=== PATIENT | female | born 1950 | race Caucasian/White ===

== ENCOUNTER 2017-11-18 03:32 | Inpatient (IN) | payer OTHER ==
[~2017-11-18] VITALS: Ht 170.2 cm; Wt 95.7 kg
[~2017-11-18 03:32] MED LIST: COMBIGAN EYE DRO5 ML OPH; CRANBERRY200 MG PO; DILTIAZEM 24HR360 MG PO; LISINOPRIL40 M1 PO; LUMIGAN2.5 ML OPH
[2017-11-18] MEDS ORDERED: PEPCID20 M1 PO (09:13)
[2017-11-18] MEDS ORDERED: COLACE100 M1 PO (09:13)
[2017-11-18] MEDS ORDERED: DILAUDID2 M1 PO ×2 (09:13→13:18)
[2017-11-18] MEDS ORDERED: MIRALAX17 G1 PO (09:13)
[2017-11-18] MEDS ORDERED: MS CONTIN15 M3 PO ×2 (09:13→13:18)
[2017-11-18] MEDS ORDERED: ASPIRIN EC325 M2 PO (09:13)
--- NOTE | 2017-11-18 09:53 | Patient Discharge Instructions ---
Discharge Instructions General Discharge Information You were seen/treated for: DJD You had these procedures: RIGHT TOTAL HIP REPLACEMENT Watch for these problems: FEVER OVER 101 REDNESS AROUND OR DRAINAGE FROM WOUND No bath, but you may shower: Yes Other wound care: CLEAN DRY DRESSING CHANGE DAILY Diet Continue normal diet: Yes Activity Activity Self Limited: Yes Activity Limited to: Weight bear as tolerated Acute Coronary Syndrome Inclusion Criteria At DC or during hospital stay patient has or had the following: ACS DIAGNOSIS No Discharge Core Measures Meds if any: Prescribed or Continued at Discharge Meds if any: NOT Prescribed or Continued at Discharge Congestive Heart Failure Inclusion Criteria At DC or during hospital stay patient has or had the following: CHF DIAGNOSIS No Discharge Core Measures Meds if any: Prescribed or Continued at Discharge Meds if any: NOT Prescribed or Continued at Discharge Cerebrovascular accident Inclusion Criteria At DC or during hospital stay patient has or had the following: CVA/TIA Diagnosis No Discharge Core Measures Meds if any: Prescribed or Continued at Discharge Meds if any: NOT Prescribed or Continued at Discharge Venous thromboembolism Inclusion Criteria VTE Diagnosis No VTE Type NONE VTE Confirmed by (Test) NONE Discharge Core Measures - Per Current guidelines, there needs to be overlap - treatment for the first 5 days of Warfarin therapy. - If discharged on Warfarin prior to 5 days of - overlap therapy, the patient will need to be - assessed for post discharge needs including - *Post discharge parental anticoagulation - *Warfarin and/or parental anticoagulation education - *Follow up date to check INR post discharge At least 5 days overlap therapy as Inpatient No Meds if any: Prescribed or Continued at Discharge Note: Overlap Therapy is Warfarin and Anticoagulant Meds if any: NOT Prescribed or Continued at Discharge
--- NOTE | 2017-11-18 09:55 | Admission Core Measures ---
Acute Coronary Syndrome (CM) ACS Core Measures Acute Coronary Syndrome Diagnosis No Congestive Heart Failure (NEW) CHF Core Measures Congestive Heart Failure Diagnosis No Cerebrovascular Accident (NEW) CVA Core Measures CVA/TIA Diagnosis No Venous Thromboembolism VTE Core Mariana (View Protocol) VTE Risk Factors Surgery No Mechanical VTE Prophylaxis d/t N/A MechProphylax Ordered No VTE Pharm Prophylaxis d/t NA PharmProphylax ordered Problem List As ranked by this Provider includes Assessment & Plan 1. Status post total replacement of right hip HOME MEDS Home Med List Aspirin (Ecotrin*) 325 MG TABLET.DR 1 TAB PO BID ANTICOAGULATION Bimatoprost (Lumigan) 0.01 % DROPS 1 GTT OPH QPM EYE (Reported) Cranberry Extract (Cranberry) 200 MG CAPSULE 1 TAB PO DAILY Supplement ( Reported) Diltiazem HCl (Diltiazem 24HR ER) 360 MG CAP.ER.24H 1 CAP PO DAILY AFIB ( Reported) Docusate Sodium (Colace) 100 MG CAPSULE 1 CAP PO BID STOOL SOFTENER Famotidine (Pepcid) 20 MG TABLET 1 TAB PO DAILY GI PROPHYLAXIS Lisinopril 40 MG TABLET 1 TAB PO DAILY HTN (Reported) Polyethylene Glycol 3350 (Miralax) 17 GRAM POWD.PACK 1 PAC PO DAILY CONSTIPATION
--- NOTE | 2017-11-18 10:00 | Surg Short-stay <48hrs Dis Sum ---
Visit Information Visit Dates Admission Date: 11/18/17 Discharge Date: 11/18/2017 Surgical Short Stay DC Summary Admission Diagnosis: OA Final Diagnosis: SP R THR Procedure(s): R THR, SEE OP REPORT Summary/Significant Findings: PT UNDERWENT RIGHT THR ON 11/18/[address] DAY[address] PT WAS ABLE TO VOID, AMBULATE WITH PT AND HER PAIN WAS MANAGED ORAL MEDICATION. SHE WAS DEEMED STABLE TO BE DISCHARGED TO HOME WITH SERVICES. Condition at Discharge: STABLE Discharge Disposition: home health services Discharge instructions provided to patient/family: Yes Post discharge follow-up plan: APPOINTMENT SCHEDULED WITH DR DAY Copies to: Aravind Day MD
--- NOTE | 2017-11-18 10:11 | RADIOLOGY REPORT ---
EXAMINATION: XR HIP, RIGHT CLINICAL INFORMATION: Postop right hip arthroplasty COMPARISON: None TECHNIQUE: Two views of the right hip. FINDINGS: The right hip total arthroplasty components are in the usual position and alignment without evidence of loosening or fracture. Soft tissue gas overlies the operative site. IMPRESSION: Standard postoperative appearance of the right total hip arthroplasty.
[2017-11-18 10:40] VITALS: BP 142/68
--- NOTE | 2017-11-18 12:36 | PN- Orthopedic ---
Subjective Subjective: POC feeling nauseous, some improvement after meds. denies pain. no oob yet- awaiting pt eval. due to vid postop. awaiting pt eval "still slightly numb" Objective Vital Signs and I&Os Vital Signs Date Time Temp Pulse Resp B/P B/P Pulse O2 O2 Flow FiO2 Mean Ox Delivery Rate 11/18 1040 97.9 52 18 142/68 93 Room Air Intake & Output 11/18 1600 11/18 0800 11/18 0000 11/17 1600 11/17 0800 11/17 0000 Intake Total Output Total Balance Patient 211 lb Weight Weight Reported by Patient Measurement Method Physical Exam: gen- nad card- rrr pulm- no audible wheeze abd- soft nt ext- right hip dressing cdi, ttp at incision, palp dp, calves soft nt bl, alps on, gross sensation intact, +dorsi/plantar flexion though somewhat limited Assessment/Plan Assessment/Plan A- 67F POD0 sp R DOROTHY, PMHx htn with postop nausea, due to void postop, awaiting pt eval, otherwise stable. P- - asa bid, alps - pt, wbat - due to void postop - hl once nausea improves and voids - home meds - dc planning - will dw attending Core Measures Venous Thromboembolism VTE Risk Factors Surgery No Mechanical VTE Prophylaxis d/t N/A MechProphylax Ordered No VTE Pharm Prophylaxis d/t NA PharmProphylax ordered
--- NOTE | 2017-11-18 15:39 | Operative Report ---
Operative/Inv Procedure Report Surgery Date: 11/18/17 Name of Procedure: Right total hip replacement Pre-Operative Diagnosis: Primary right hip DJD Post-Operative Diagnosis: Same Estimated Blood Loss: 250 Surgeon/Hand Plug Shaper: Laura CHACON,Aravind Prince Anesthesia: block Operative/Procedure Note Note: Description of Procedure: The patient was taken to the operating room and positively identified. After induction of spinal anesthesia and administration of appropriate pre-operative antibiotics, the patient was positioned supine on the operating room table and all bony prominences were well padded. After performing a surgical timeout, the right lower extremity was prepped and draped in the usual sterile fashion. A direct anterior approach was made to the right hip. The incision was carried sharply through superficial soft tissues to the level of the fascia. Meticulous hemostasis was maintained with Bovie electocautery. The fascia over the tensor fascia sandie muscle was opened sharply and the interval between the TFL and the sartorius was entered bluntly taking care to stay lateral to the lateral femoral cutaneous nerve. Retractors were placed around the femoral neck and the pericapsular fat was identified. The ascending branches of the lateral femoral circumflex vessels were identified and carefully coagulated. The pericapsular fat and anterior capsule were then resected. A napkin ring osteotomy was performed and the femoral head was removed without difficulty. Attention was then turned to the acetabulum. After appropriate placement of retractors, the acetabulum was exposed. Soft tissue was cleaned from the acetabular margin and notch. Overhanging osteophytes were removed and the teardrop was exposed. The acetabulum was then sequentially reamed to accept a 56 mm Kayode Tritanium hemispherical solid shell. This was impacted into place in the appropriate position and fitted with a 36 mm Trident X3 zero degree polyethylene insert. Attention was then turned to the femur. After performing the appropriate ligament releases, the proximal femur was exposed. It was then sequentially broached to accept a size 6 Kayode Accolade 2 stem. This was trialed for leg length and stability. The trial component was removed and the final component was impacted into place. The trunnion was carefully cleaned and fit with a 36 mm, +0 Biolox delta ceramic femoral head. The hip was reduced and put through a full range of motion and found to be stable. The articular space was then irrigated with sterile saline. The periarticular soft tissues were infilitrated with Marcaine. The fascial layer was closed with interrupted #1 vicryl suture and the skin was re-approximated with interrupted 2 -0 vicryl. The skin was closed with a running 3-0 V-Lock suture. Steri-strips and a sterile dressing were applied. The patient was awakened and taken to the recovery room in satisfactory condition.
== END 2017-11-18 16:54 | disposition home health service (06) | DRG 470 ==
LOC: SDA 03:32 → ENRESERV 09:33 → ENTRNSPT 10:20 → EDTRNSPTSTS 10:30 → EDTRNSPT 10:30 → 2NB 10:47 → CMPTRNSPT 10:47 → ENTRNSPT 16:41 → EDTRNSPTSTS 16:44 → 2NB 16:54 → CMPTRNSPT 17:01
PROC: 0SR904A Replacement of Right Hip Joint with Ceramic on Polyethylene Synthetic Substitute, Uncemented, Open Approach (ICD-10-PCS; principal; 2017-11-18)
DX: M16.11 Unilateral primary osteoarthritis, right hip (principal); H40.9 Unspecified glaucoma; I10 Essential (primary) hypertension; Z87.891 Personal history of nicotine dependence
CPT/HCPCS: 2NBSP; 73502-RT; 88304; 97116-GO; 97161-GP; 97530-GO; J0131; J0690; J0735; J2405; J2550; J3490; J7042